=== PATIENT | male | born 1950 | race Caucasian/White ===

== ENCOUNTER → 2017-03-30 | Outpatient (CLI) | payer MEDICARE, BC ==
--- NOTE | 2017-03-31 10:17 | KCIC ---
PROCEDURE MRI of the cervical spine without contrast 03/30/2017 HISTORY Chronic neck pain and shoulder pain. TECHNIQUE Unenhanced T1 weighted, T2 weighted and inversion recovery sagittal and gradient echo and T2 weighted axial images of the cervical spine were obtained. FINDINGS Minimal S-shaped curvature of the cervicothoracic spine is seen. There is slight reversal of the normal cervical lordosis. Degenerative signal changes are seen involving all of the discs of the cervical spine. Loss of height of the C5-6 disc is noted. Degenerative signal changes are seen within the marrow surrounding this disc. No area of abnormal signal intensity is seen involving the cervical spinal cord. At the C2-3 disc space there is a minimal generalized disc bulge. Degenerative changes are seen involving the uncovertebral and facet joints, left greater than right. These findings do not result in significant central spinal canal stenosis. Mild to moderate left greater than right neural foraminal stenosis is seen. At the C3-4 disc space there is a mild generalized disc bulge. Degenerative changes are seen involving the uncovertebral and facet joints bilaterally. These findings when combined do not result in significant central spinal canal or neural foraminal stenosis. At the C4-5 disc space there is minimal generalized disc bulge. Degenerative changes are seen involving the uncovertebral and facet joints bilaterally. These findings do not result in significant central spinal canal or neural foraminal stenosis. At the C5-6 disc space there is a moderate generalized disc bulge. Superimposed on this disc bulge is a right paracentral disc osteophyte complex. This measures 4 millimeters in AP diameter. Degenerative changes are seen involving the uncovertebral and facet joints, right greater than left. These findings efface the anterior and posterior CSF resulting in mild to moderate right greater than left central spinal canal stenosis with mild to moderate right greater than left cord impingement. Mild to moderate right greater than left neural foraminal stenosis is seen. At the C6-7 disc space there is a mild generalized disc bulge. This is eccentric to the left. Degenerative changes are seen involving the uncovertebral and facet joints bilaterally. These findings when combined do not result in significant central spinal canal or neural foraminal stenosis. At the C7-T1 disc space there is a minimal generalized disc bulge. Degenerative changes are seen involving the facet joints bilaterally. These findings when combined do not result in significant central spinal canal or neural foraminal stenosis. IMPRESSION Degenerative changes are seen throughout the cervical spine. These findings result in mild to moderate right greater than left central spinal canal stenosis with mild to moderate right greater than left cord impingement at C5-6. Mild to moderate left greater than right neural foraminal stenosis is seen at C2-3. Mild to moderate right greater than left neural foraminal stenosis is seen at C5-6. Electronically signed by: Gio Ramos MD (March 31, 2017 10:15:04)
--- NOTE | 2017-03-31 10:59 | KCIC ---
PROCEDURE MRI of the lumbar spine without contrast 03/30/2017 HISTORY Low back pain with left knee pain. TECHNIQUE Unenhanced T1 weighted and T2 weighted sagittal and axial and inversion recovery sagittal images of the lumbar spine were obtained. FINDINGS Minimal S-shaped curvature of the thoracolumbar spine is seen. Degenerative signal changes and loss of height are seen involving the L2-3, L3-4, L4-5 and L5-S1 discs. Degenerative signal changes are seen within the marrow surrounding these discs. The conus medullaris is normal in morphology, position, and signal characteristics. The L1-2 disc space is within normal limits. At the L2-3 disc space there is a mild generalized disc bulge. This is eccentric to the left. Degenerative changes are seen involving the facet joints, left greater than right. There is mild ligamentum flavum hypertrophy bilaterally. There is prominence of the posterior epidural fat. These findings when combined result in mild central spinal canal stenosis. Mild left neural foraminal stenosis is seen. The right neural foramina is patent. At the L3-4 disc space there is mild to moderate generalized disc bulge. This is eccentric to the left. Degenerative changes are seen involving the facet joints bilaterally. There is mild ligamentum flavum hypertrophy bilaterally. There is prominence of the posterior epidural fat. These findings when combined result in mild to moderate central spinal canal stenosis. Moderate left greater than right neural foraminal stenosis is seen. At the L4-5 disc space there is a mild to moderate generalized disc bulge. This is eccentric to the right. Degenerative changes are seen involving the facet joints bilaterally. There is mild to moderate ligamentum flavum hypertrophy bilaterally. There is prominence of the posterior epidural fat. These findings when combined result in mild central spinal canal stenosis. Mild to moderate right greater than left neural foraminal stenosis is seen. At the L5-S1 disc space there is moderate generalized disc bulge. Degenerative changes are seen involving the facet joints bilaterally. There is moderate ligamentum flavum hypertrophy bilaterally. These findings when combined do not result in significant central spinal canal stenosis. Mild to moderate right greater than left neural foraminal stenosis is seen. IMPRESSION The changes of degenerative disc disease are seen throughout the lumbar spine. These findings result mild central spinal canal stenosis at L2-3 and L4-5 and mild to moderate central spinal canal stenosis at L3-4. Multilevel neural foraminal stenosis is seen as outlined above. Electronically signed by: Gio Ramos MD (March 31, 2017 10:58:39)
== END | disposition home or self-care (01) ==
LOC: KCIC MRI 16:45
PROVIDERS: ATTEND Anesthesiology Pain Medicine
DX: M47.892 Other spondylosis, cervical region (principal); M48.02 Spinal stenosis, cervical region; M48.06 Spinal stenosis, lumbar region; M54.9 Dorsalgia, unspecified; M51.16 Intervertebral disc disorders with radiculopathy, lumbar region
CPT/HCPCS: 72141; 72148

== ENCOUNTER → 2017-10-27 | Outpatient (CLI) | payer MEDICARE, BC ==
--- NOTE | 2017-10-27 12:52 | KCIC ---
MRI Lumbar Spine without contrast History: Low back pain, sciatica, bilateral knee pain, right leg numbness last 2 months Technique: Multiplanar, multi sequential noncontrast MR imaging was performed of the lumbar spine. Contrast: None Comparison: March 30, 2017 Findings: Lumbar vertebral body stature is unchanged. There is again very mild grade 1 anterior spondylolisthesis at L5-S1. Conus terminates at L1. There is advanced degenerative disc disease at L3-4 and L4-5 and to lesser degree at L5-S1 and L2-3. There is similar very mild amorphous edema of the L3 and L4 vertebral bodies. L2-L3: There is again very minimal disc osteophyte complex and bulge. There is mild facet degenerative change and prominence of posterior epidural fat. There is again mild narrowing of the far left lateral recess. There is [id number] left and minimal right neural foramina compromise. L3-L4: There is again minimal disc osteophyte complex. There is prominence of posterior epidural fat, mild buckling of the ligamentum flavum, and mild to moderate facet degenerative change. There is mild narrowing of the far lateral recesses greater on the left as seen previously. There is severe narrowing of the left neural foramen by disc osteophyte complex and facet hypertrophic change with impingement of the exiting left L3 nerve root, also moderate to severe narrowing on the right. L4-L5: There is very minimal disc osteophyte complex. There is minimal buckling of the ligamentum flavum and facet degenerative change. There is again minimal narrowing of the far right lateral recess. There is fairly severe right and moderate to severe left neural foramina compromise with contact of the exiting L4 nerve roots greater on the right. L5-S1: There is fairly severe, right greater than left facet degenerative change. There is minimal disc osteophyte complex and bulge. Spinal canal is adequate. There is again fairly severe right and [id number] left neural foramina compromise. Impression: 1. Findings are similar compared with the March 2017 exam. There is again advanced degenerative disc disease L3-4 and L4-5 and to lesser degree at other levels, also multilevel spondylosis. 2. There is multilevel neural foramina compromise, more significant narrowing bilaterally at L3-4 and L4-5 and on the right at L5-S1. 3. There is no significant lumbar spinal stenosis, mild lateral recess stenosis as stated. Electronically signed by: Federico Medina MD (10/27/2017 12:49 PM) [id number]
== END | disposition home or self-care (01) ==
LOC: KCIC MRI 09:44
PROVIDERS: ATTEND Physician Assistant Medical
DX: M47.816 Spondylosis without myelopathy or radiculopathy, lumbar region (principal); M51.36 Other intervertebral disc degeneration, lumbar region
CPT/HCPCS: 72148